=== PATIENT | female | born 1975 | race Caucasian/White ===

== ENCOUNTER 2016-09-30 14:34 | Emergency (ER) | payer OTHER ==
[2016-09-30] MEDS ORDERED: Iohexol 240 (50 ml) PO ONE (15:10)
[2016-09-30] MEDS ORDERED: Sodium Chloride 0.9% 1,000 ML IV STA (15:11)
--- NOTE | 2016-09-30 15:12 | ED PDOC ---
HPI: Abdomen Time Seen by Provider: 09/30/16 14:51 Chief Complaint (Nursing): Abdominal Pain Chief Complaint (Provider): Abdominal pain History Per: Patient Additional Complaint(s): To ED for evaluation of abdominal pain L>R and constipation x 1 week with vomiting and epigastric pain. Past Medical History Vital Signs: Last Vital Signs Temp 98.0 F 09/30/16 14:41 Pulse 105 H 09/30/16 14:41 Resp 16 09/30/16 14:41 BP 141/81 09/30/16 14:41 Pulse Ox 100 09/30/16 14:41 - Medical History PMH: Anemia, Hypothyroidism, Kidney Stones - Family History Family History: States: Unknown Family Hx - Immunization History Hx Tetanus Toxoid Vaccination: No Hx Influenza Vaccination: No Hx Pneumococcal Vaccination: No - Home Medications Home Medications: Ambulatory Orders Medication Instructions Recorded Levothyroxine Sodium [Levoxyl] 75 mcg PO DAILY 08/10/14 Ciprofloxacin HCl [Cipro] 500 mg PO BID 7 Days 05/15/15 Ibuprofen [Motrin] 600 mg PO TID 7 Days 05/15/15 Metronidazole [Flagyl] 500 mg PO TID 7 Days 05/15/15 Tamsulosin [Flomax] 0.4 mg PO DAILY PRN #6 cap 05/15/15 - Allergies Allergies/Adverse Reactions: Allergies Allergy/AdvReac Type Severity Reaction Status Date / Time aloe Allergy RASH Verified 09/30/16 14:41 sulfamethoxazole Allergy RASH Verified 12/31/15 19:43 [From Bactrim] trimethoprim [From Bactrim] Allergy RASH Verified 12/31/15 19:43 - ECG O2 Sat by Pulse Oximetry: 100
[2016-09-30 15:28] LABS: SQUAMOUS EPITHIAL 3 /hpf (0-5); URINE BACTERIA RARE (<OCC); URINE BILIRUBIN NEGATIVE (NEGATIVE); URINE BLOOD NEGATIVE (NEGATIVE); URINE CLARITY SLIGHTY-CLOUDY (Clear); URINE COLOR YELLOW (YELLOW); URINE GLUCOSE (UA) NEG (Normal); URINE LEUKOCYTE ESTERASE SMALL Leu/uL (Negative); URINE NITRATE NEGATIVE (NEGATIVE); URINE PROTEIN 30 mg/dL (NEGATIVE); URINE UROBILINOGEN 0.2-1.0 mg/dL (0.2-1.0)
[2016-09-30 15:38] LABS: BASO # 0.1 K/uL (0.0-0.2); BASO % 0.5 % (0.0-2.0); EOS % 0.3 % (0.0-4.0); HEMOGLOBIN 14.1 g/dL (12.0-16.0); LYMPH # 2.6 K/uL (1.0-4.3); LYMPH % 21.5 % (20.0-40.0); MEAN CORPUSCULAR HGB CONC 32.5 g/dL (33.0-37.0); MEAN PLATELET VOLUME 9.4 fl (7.2-11.7); MONO % 8.2 % (0.0-10.0); NEUT # 8.4 K/uL (1.8-7.0); NEUT % 69.5 % (50.0-75.0); RBC 5.43 Mil/uL (3.80-5.20); RED CELL DISTRIBUTION WIDTH 16.4 % (11.5-14.5); WHITE BLOOD COUNT 12.1 K/uL (4.8-10.8)
[2016-09-30 15:47] LABS: ALB/GLOB RATIO 1.1 (1.0-2.1); ALBUMIN 4.6 g/dL (3.5-5.0); ALT/SGPT 39 U/L (9-52); AMYLASE 78 U/L (30-110); AST/SGOT 25 U/L (14-36); BLOOD UREA NITROGEN 13 mg/dl (7-17); CALCIUM 11.6 mg/dL (8.4-10.2); GFR AFRICAN-AMERICAN > 60; GFR NON-AFRICAN AMERICAN > 60; LIPASE 66 U/L (23-300)
[2016-09-30] MEDS ORDERED: Iohexol 240 (50 ml) ONE (15:47)
[2016-09-30] MEDS ORDERED: Sodium Chloride 0.9% 100 ML ONE (17:34)
[2016-09-30] MEDS ORDERED: Iohexol 300 100 ML IJ ONE (17:34)
--- NOTE | 2016-09-30 18:29 | CT ---
PROCEDURE: CT abdomen and pelvis dated 09/30/2016 HISTORY: LLQ pain/ vomiting, r/o obstruction COMPARISON: Comparison made with prior CT scan abdomen pelvis 05/15/2015 TECHNIQUE: Contiguous axial images of the abdomen and pelvis performed of following oral and intravenous injection of approximately 95 cc Omnipaque 300 contrast material. . Coronal and Sagittal reformats generated. Radiation dose: Total exam DLP = 1011.11 mGy-cm. This CT exam was performed using one or more of the following dose reduction techniques: Automated exposure control, adjustment of the mA and/or kV according to patient size, and/or use of iterative reconstruction technique. FINDINGS: LOWER THORAX: Unremarkable. LIVER: Liver exhibits normal upper limits of normal in size measuring nearly 17 cm in CC dimension. . Subtle area of low attenuation along the left lobe liver bordering the fissure probably represent some localized fatty infiltration. Follow-up CT scan at interval could be performed to assess stability. No calcifications are identified. . Mild diffuse fatty hepatic infiltration. Portal and splenic veins are opacified. GALLBLADDER AND BILE DUCTS: Gallbladder is moderately distended. Layering calculi seen within the dependent portion of the gallbladder. PANCREAS: Visualized portions the pancreas unremarkable. SPLEEN: Spleen is upper limits of normal measuring approximately 12 cm in CC dimension. . No evidence of splenic collection or calcification. . ADRENALS: No definitive adrenal lesions seen. KIDNEYS AND URETERS: Kidneys demonstrate symmetric nephrograms. No evidence of nephrolithiasis or hydronephrosis. . Probable tiny exophytic cyst mid to lower pole right kidney BLADDER: Urinary bladder is physiologically distended. No evidence of intraluminal urinary bladder calculi. REPRODUCTIVE: Status post hysterectomy. There is a rounded low-attenuation focus right aspect of the pelvis possibly representing an ovarian cyst. This measures approximately a 2.2 cm in greatest dimension APPENDIX: Not visualized on this study. . . BOWEL: Evaluation of the bowel is limited due to the lack of oral contrast material. There are scattered colonic diverticula seen along the descending and sigmoid colon region. Minor wall thickening is also present along the distal descending/ sigmoid colon best seen on axial image number [id number] and possibly again on along the lower sigmoid colon image number [id number]. Findings could represent mild early acute diverticulitis. Few small on lymph nodes right lower quadrant of the abdomen ; rule out with mesenteric adenitis PERITONEUM: No gross free intraperitoneal air or fluid. LYMPH NODES: As above. VASCULATURE: Unremarkable. No aortic aneurysm. BONES: No fracture or destructive lesion. OTHER FINDINGS: None. IMPRESSION: Diverticulosis involving the descending and proximal sigmoid colon with slight wall thickening of a short segment of the distal descending/sigmoid colon junction. Rule out early mild acute diverticulitis. Borderline splenomegaly. Borderline hepatomegaly. Mild fatty hepatic infiltration. Questionable mesenteric adenitis. Status post hysterectomy. Probable right ovarian cyst as above. Recommend followup pelvic ultrasound for confirmation Findings discussed with THADDEUS Hawkins at approximately 6:25 p.m. with written down and read back verification
[2016-09-30 18:53] VITALS: BP 134/78; PULSE 67; RESP 19; TEMP 98.1; O2SAT 98
== END 2016-09-30 19:20 | disposition home or self-care (01) ==
LOC: H.ER 14:34
DX: K57.30 Diverticulosis of large intestine without perforation or abscess without bleeding (principal); Z90.710 Acquired absence of both cervix and uterus

== ENCOUNTER 2017-04-07 14:47 | Emergency (ER) | payer MEDICAID, OTHER ==
[2017-04-07 14:47] VITALS: BMI 35.9
[2017-04-07 15:16] VITALS: BP 140/82; PULSE 88; RESP 16; TEMP 97.9; O2SAT 99
--- NOTE | 2017-04-07 16:33 | ED PDOC ---
HPI: CCC, URI, Sore Throat Time Seen by Provider: 04/07/17 15:26 Chief Complaint (Nursing): Cough, Cold, Congestion Past Medical History Vital Signs: Last Vital Signs Temp 97.9 F 04/07/17 15:14 Pulse 88 04/07/17 15:14 Resp 16 04/07/17 15:14 BP 140/82 04/07/17 15:14 Pulse Ox 99 04/07/17 15:14 - Medical History PMH: Anemia, Hypothyroidism, Kidney Stones, Chronic Kidney Disease - Family History Family History: States: Unknown Family Hx - Immunization History Hx Tetanus Toxoid Vaccination: No Hx Influenza Vaccination: No Hx Pneumococcal Vaccination: No - Home Medications Home Medications: Ambulatory Orders Medication Instructions Recorded Levothyroxine Sodium [Levoxyl] 75 mcg PO DAILY 08/10/14 Azithromycin 250 mg PO DAILY #6 tab 04/07/17 - Allergies Allergies/Adverse Reactions: Allergies Allergy/AdvReac Type Severity Reaction Status Date / Time aloe Allergy RASH Verified 04/07/17 15:14 sulfamethoxazole Allergy RASH Verified 04/07/17 15:14 [From Bactrim] trimethoprim [From Bactrim] Allergy RASH Verified 04/07/17 15:14 - ECG O2 Sat by Pulse Oximetry: 99 Disposition - Clinical Impression Clinical Impression: Acute bronchitis - Patient ED Disposition Is Patient to be Admitted: No Counseled Patient/Family Regarding: Diagnosis, Need For Followup, Rx Given - Disposition Disposition: Routine/Home Disposition Time: 16:32 Condition: GOOD Prescriptions: Azithromycin 250 mg PO DAILY #6 tab Instructions: Acute Bronchitis (ED)
--- NOTE | 2017-04-07 16:35 | ED PDOC ---
HPI: CCC, URI, Sore Throat Time Seen by Provider: 04/07/17 15:26 Chief Complaint (Nursing): Cough, Cold, Congestion Chief Complaint (Provider): Cough, right sided chest pain with cough History Per: Patient History/Exam Limitations: no limitations Have you had recent travel within the past 21 days to any of the following countries: [place], [place], [place] or [place]?: No Onset/Duration Of Symptoms: Days Current Symptoms Are (Timing): Still Present Associated Symptoms: Fever (no temp taken), Cough. denies: Sputum, Myalgias Ear Symptoms: Bilateral: None Severity: Mild Pain Scale Rating Of: 3 Past Medical History Reviewed: Historical Data, Nursing Documentation, Vital Signs Vital Signs: Last Vital Signs Temp 97.9 F 04/07/17 15:14 Pulse 88 04/07/17 15:14 Resp 16 04/07/17 15:14 BP 140/82 04/07/17 15:14 Pulse Ox 99 04/07/17 16:33 - Medical History PMH: Anemia, Hypothyroidism, Kidney Stones, Chronic Kidney Disease - Surgical History Surgical History: No Surg Hx - Family History Family History: States: Unknown Family Hx - Living Arrangements Living Arrangements: With Family - Social History Current smoker - smoking cessation education provided: No - Immunization History Hx Tetanus Toxoid Vaccination: No Hx Influenza Vaccination: No Hx Pneumococcal Vaccination: No - Home Medications Home Medications: Ambulatory Orders Medication Instructions Recorded Levothyroxine Sodium [Levoxyl] 75 mcg PO DAILY 08/10/14 Azithromycin 250 mg PO DAILY #6 tab 04/07/17 - Allergies Allergies/Adverse Reactions: Allergies Allergy/AdvReac Type Severity Reaction Status Date / Time aloe Allergy RASH Verified 04/07/17 15:14 sulfamethoxazole Allergy RASH Verified 04/07/17 15:14 [From Bactrim] trimethoprim [From Bactrim] Allergy RASH Verified 04/07/17 15:14 Review of Systems ROS Statement: Except As Marked, All Systems Reviewed And Found Negative Constitutional: Negative for: Fever, Chills Cardiovascular: Positive for: Chest Pain (Only when coughing ) Respiratory: Positive for: Cough. Negative for: Shortness of Breath Gastrointestinal: Negative for: Nausea, Vomiting, Abdominal Pain Physical Exam - Reviewed Nursing Documentation Reviewed: Yes Vital Signs Reviewed: Yes - Physical Exam Appears: Positive for: Well, Non-toxic, No Acute Distress Head Exam: Positive for: ATRAUMATIC, NORMAL INSPECTION, NORMOCEPHALIC Skin: Positive for: Normal Color, Warm, DRY Eye Exam: Positive for: Normal appearance ENT: Positive for: Normal ENT Inspection Neck: Positive for: Normal, Painless ROM Cardiovascular/Chest: Positive for: Regular Rate, Rhythm Respiratory: Positive for: Normal Breath Sounds. Negative for: Accessory Muscle Use, Respiratory Distress Gastrointestinal/Abdominal: Positive for: Normal Exam, Bowel Sounds Back: Positive for: Normal Inspection Extremity: Positive for: Normal ROM Neurologic/Psych: Positive for: Alert, Oriented - ECG O2 Sat by Pulse Oximetry: 99 Disposition - Clinical Impression Clinical Impression: Acute bronchitis - Disposition Disposition: Routine/Home Disposition Time: 16:32 Condition: GOOD Prescriptions: Azithromycin 250 mg PO DAILY #6 tab Instructions: Acute Bronchitis (ED) Forms: [facility] ([place])
--- NOTE | 2017-04-07 16:50 | RAD ---
HISTORY: right sided chest pain with cough COMPARISON: 04/03/2012 TECHNIQUE: Chest PA and lateral FINDINGS: LUNGS: No active pulmonary disease. PLEURA: No significant pleural effusion identified. No pneumothorax apparent. CARDIOVASCULAR: Normal. OSSEOUS STRUCTURES: No significant abnormalities. VISUALIZED UPPER ABDOMEN: Normal. OTHER FINDINGS: None. IMPRESSION: No active disease.
--- NOTE | 2017-04-08 14:27 | CARD ---
APPROVED REPORT EKG Measurement Heart [id number] <Conclusion> Normal sinus rhythm Normal ECG
== END 2017-04-07 16:41 | disposition home or self-care (01) ==
LOC: H.ER 14:47
DX: J20.9 Acute bronchitis, unspecified (principal); E03.9 Hypothyroidism, unspecified; Z87.442 Personal history of urinary calculi

== ENCOUNTER 2017-04-17 01:42 | Emergency (ER) | payer MEDICAID ==
[2017-04-17 01:42] VITALS: BMI 35.9
[2017-04-17 02:20] VITALS: BP 131/83; PULSE 84; RESP 18; TEMP 98.1; O2SAT 100
[2017-04-17] MEDS ORDERED: Sodium Chloride 0.9% 1,000 ML IV STA (02:41)
--- NOTE | 2017-04-17 02:48 | ED PDOC ---
HPI: Chest Pain Time Seen by Provider: 04/17/17 02:01 Chief Complaint (Nursing): Chest Pain Chief Complaint (Provider): Chest Pain History Per: Patient History/Exam Limitations: no limitations Onset/Duration Of Symptoms: Days (x1 month) Current Symptoms Are (Timing): Still Present Additional Complaint(s): 41 year old female with medical history of hypothyroidism, asthma and chronic kidney disease, presents to the emergency department with a complaint of intermittent chest pain associated with palpitations, abdominal cramping and 7 episodes of loose, watery diarrhea ongoing for 1 month. Denied any fever, chills , nausea, vomiting or cough. She also reported having shortness of breath that had resolved upon arrival to ED. PMD: Shaik Kathrine BADILLO Past Medical History Reviewed: Historical Data, Nursing Documentation, Vital Signs Vital Signs: Last Vital Signs Temp 98.1 F 04/17/17 02:16 Pulse 84 04/17/17 02:16 Resp 18 04/17/17 02:16 BP 131/83 04/17/17 02:16 Pulse Ox 100 04/17/17 02:52 - Medical History PMH: Anemia, Hypothyroidism, Kidney Stones, Chronic Kidney Disease - Surgical History Surgical History: Denies: No Surg Hx - Family History Family History: States: Unknown Family Hx - Social History Current smoker - smoking cessation education provided: No Alcohol: Occasional Drugs: Denies - Immunization History Hx Tetanus Toxoid Vaccination: No Hx Influenza Vaccination: No Hx Pneumococcal Vaccination: No - Home Medications Home Medications: Ambulatory Orders Medication Instructions Recorded Levothyroxine Sodium [Levoxyl] 75 mcg PO DAILY 08/10/14 Azithromycin 250 mg PO DAILY #6 tab 04/07/17 Dicyclomine [Bentyl] 20 mg PO Q12 PRN #20 tab 04/17/17 Ondansetron ODT [Zofran ODT] 4 mg PO Q6 PRN #8 odt 04/17/17 - Allergies Allergies/Adverse Reactions: Allergies Allergy/AdvReac Type Severity Reaction Status Date / Time aloe Allergy RASH Verified 04/17/17 02:20 sulfamethoxazole Allergy RASH Verified 04/17/17 02:20 [From Bactrim] trimethoprim [From Bactrim] Allergy RASH Verified 04/17/17 02:20 Review of Systems ROS Statement: Except As Marked, All Systems Reviewed And Found Negative Constitutional: Negative for: Fever, Chills Cardiovascular: Positive for: Chest Pain, Palpitations Respiratory: Positive for: Shortness of Breath (resolved). Negative for: Cough Gastrointestinal: Positive for: Abdominal Pain (cramps), Diarrhea (loose and wateryx 7). Negative for: Nausea, Vomiting Physical Exam - Reviewed Nursing Documentation Reviewed: Yes Vital Signs Reviewed: Yes - Physical Exam Appears: Positive for: Well, Non-toxic, No Acute Distress Head Exam: Positive for: ATRAUMATIC, NORMAL INSPECTION, NORMOCEPHALIC Skin: Positive for: Normal Color Eye Exam: Positive for: Normal appearance ENT: Positive for: Normal ENT Inspection Neck: Positive for: Normal, Painless ROM Cardiovascular/Chest: Positive for: Regular Rate, Rhythm, Chest Non Tender Respiratory: Positive for: Normal Breath Sounds. Negative for: Decreased Breath Sounds, Respiratory Distress Gastrointestinal/Abdominal: Positive for: Normal Exam, Soft. Negative for: Tenderness Extremity: Positive for: Normal ROM (lower). Negative for: Pedal Edema, Calf Tenderness Neurologic/Psych: Positive for: Alert (x3), Oriented - Laboratory Results Result Diagrams: 04/17/17 02:45 04/17/17 02:45 - ECG O2 Sat by Pulse Oximetry: 100 (RA) Pulse Ox Interpretation: Normal Medical Decision Making Medical Decision Making: Initial Impression: Palpitations in setting of diarrheal illness Initial Plan: * EKG * CMP * Drug screen, urine * Lipase * TSH * Troponin I * CBC * Bentyl 20mg PO * NS 1,000ml IV per 1,000mls/hr * Influenza A B * UA ____ Time: 0505 --Upon provider reevaluation, patient is medically stable and requires no further treatment in the ED at this time. Labs revealed no significant clinical abnormality. Patient will be discharged home with Rx for Bentyl 20mg and Zofran 4mg. Counseling was provided and all questions were answered regarding diagnosis. There is agreement to discharge plan. Return if symptoms persist or worsen. Clinical Impression: Gastroenteritis; palpitations Scribe Attestation: Documented by Rose Barron, acting as a scribe for Javier Pierson MD. Provider Scribe Attestation: All medical record entries made by the Scribe were at my direction and personally dictated by me. I have reviewed the chart and agree that the record accurately reflects my personal performance of the history, physical exam, medical decision making, and the department course for this patient. I have also personally directed, reviewed, and agree with the discharge instructions and disposition. Disposition - Clinical Impression Clinical Impression: Gastroenteritis - Patient ED Disposition Is Patient to be Admitted: No Counseled Patient/Family Regarding: Studies Performed, Diagnosis - Disposition Disposition: Routine/Home Disposition Time: 05:05 Condition: STABLE Prescriptions: Dicyclomine [Bentyl] 20 mg PO Q12 PRN #20 tab PRN Reason: abdominal pain/diarrhea Ondansetron ODT [Zofran ODT] 4 mg PO Q6 PRN #8 odt PRN Reason: Nausea/Vomiting Instructions: Gastroenteritis (ED) Forms: [employer] ([place])
[2017-04-17 03:22] LABS: BASO % 0.3 % (0.0-2.0); EOS # 0.1 K/uL (0.0-0.7); EOS % 0.8 % (0.0-4.0); HEMOGLOBIN 13.7 g/dL (12.0-16.0); LYMPH # 2.4 K/uL (1.0-4.3); LYMPH % 27.1 % (20.0-40.0); MEAN CELL VOLUME 82.4 fl (81.0-99.0); MEAN CORPUSCULAR HEMOGLOBIN 27.1 pg (27.0-31.0); MEAN CORPUSCULAR HGB CONC 32.9 g/dL (33.0-37.0); MEAN PLATELET VOLUME 9.1 fl (7.2-11.7); MONO # 0.7 K/uL (0.0-0.8); MONO % 8.4 % (0.0-10.0); NEUT # 5.6 K/uL (1.8-7.0); NEUT % 63.4 % (50.0-75.0); NRBC % 0.1 % (0.0-0.0); RBC 5.05 Mil/uL (3.80-5.20); RED CELL DISTRIBUTION WIDTH 15.3 % (11.5-14.5); WHITE BLOOD COUNT 8.9 K/uL (4.8-10.8)
[2017-04-17 03:33] LABS: ALB/GLOB RATIO 1.2 (1.0-2.1); ALBUMIN 4.3 g/dL (3.5-5.0); ALT/SGPT 44 U/L (9-52); AST/SGOT 35 U/L (14-36); BLOOD UREA NITROGEN 15 mg/dl (7-17); CALCIUM 11.2 mg/dL (8.4-10.2); GFR AFRICAN-AMERICAN > 60; GFR NON-AFRICAN AMERICAN > 60; LIPASE 102 U/L (23-300)
[2017-04-17 05:01] LABS: SQUAMOUS EPITHIAL < 1 /hpf (0-5); URINE BACTERIA RARE (<OCC); URINE BILIRUBIN NEGATIVE (NEGATIVE); URINE BLOOD NEGATIVE (NEGATIVE); URINE CLARITY CLEAR (Clear); URINE COLOR COLORLESS (YELLOW); URINE GLUCOSE (UA) NEG (Normal); URINE LEUKOCYTE ESTERASE NEG Leu/uL (Negative); URINE NITRATE NEGATIVE (NEGATIVE); URINE PROTEIN NEGATIVE (NEGATIVE); URINE UROBILINOGEN 0.2-1.0 mg/dL (0.2-1.0)
[2017-04-17 05:50] LABS: BARBITURATES, UR NEGATIVE (NEGATIVE)
[2017-04-17 05:53] LABS: BENZODIAZEPINES, UR NEGATIVE (NEGATIVE); OPIATES, UR NEGATIVE (NEGATIVE); PHENCYCLIDINE, UR NEGATIVE (NEGATIVE)
== END 2017-04-17 04:56 | disposition home or self-care (01) ==
LOC: H.ER 01:42
DX: K52.9 Noninfective gastroenteritis and colitis, unspecified (principal); R00.2 Palpitations; J45.909 Unspecified asthma, uncomplicated; Z87.442 Personal history of urinary calculi; N18.9 Chronic kidney disease, unspecified; E03.9 Hypothyroidism, unspecified
CPT/HCPCS: 80053; 80324; 80345; 80346; 80349; 80353; 80358; 80361; 81003; 83690; 83992; 84443; 84484; 85025; 87804; 96360; 99284; J7040

== ENCOUNTER 2017-07-02 08:28 | Emergency (ER) | payer MEDICAID ==
[2017-07-02 08:34] VITALS: BMI 37.8
--- NOTE | 2017-07-02 09:21 | ED PDOC ---
HPI: Abdomen Time Seen by Provider: 07/02/17 09:15 Chief Complaint (Nursing): Abdominal Pain Chief Complaint (Provider): Abdominal Pain History Per: Patient Onset/Duration Of Symptoms: Days (1) Current Symptoms Are (Timing): Still Present Severity: Mild Pain Scale Rating Of: 2 Location Of Pain/Discomfort: LLQ Quality Of Discomfort: Unable To Describe Associated Symptoms: denies: Fever, Nausea, Vomiting, Diarrhea, Urinary Symptoms Additional Complaint(s): Left flank pain radiating to suprapubic area since this AM. No assoc with NVD. No urinary sxs. No fever. Past Medical History Reviewed: Historical Data, Nursing Documentation, Vital Signs Vital Signs: Last Vital Signs Temp 97 F L 07/02/17 08:33 Pulse 68 07/02/17 08:33 Resp BP 133/86 07/02/17 08:33 Pulse Ox 97 07/02/17 11:19 - Medical History PMH: Anemia, Asthma, Bronchitis, Hypothyroidism, Kidney Stones, Chronic Kidney Disease - Surgical History Other surgeries: Hysterectomy - Family History Family History: States: Unknown Family Hx - Immunization History Hx Tetanus Toxoid Vaccination: No Hx Influenza Vaccination: No Hx Pneumococcal Vaccination: No - Home Medications Home Medications: Ambulatory Orders Medication Instructions Recorded Levothyroxine Sodium [Levoxyl] 75 mcg PO DAILY 08/10/14 Ciprofloxacin HCl [Cipro] 500 mg PO BID #20 tab 07/02/17 Tamsulosin [Flomax] 0.4 mg PO DAILY #5 cap 07/02/17 traMADol [Ultram] 50 mg PO Q8 #10 tab 07/02/17 - Allergies Allergies/Adverse Reactions: Allergies Allergy/AdvReac Type Severity Reaction Status Date / Time aloe Allergy RASH Verified 04/17/17 02:20 sulfamethoxazole Allergy RASH Verified 04/17/17 02:20 [From Bactrim] trimethoprim [From Bactrim] Allergy RASH Verified 04/17/17 02:20 Review of Systems ROS Statement: Except As Marked, All Systems Reviewed And Found Negative Gastrointestinal: Positive for: Abdominal Pain Physical Exam - Reviewed Nursing Documentation Reviewed: Yes Vital Signs Reviewed: Yes - Physical Exam Appears: Positive for: Non-toxic, No Acute Distress Head Exam: Positive for: ATRAUMATIC, NORMAL INSPECTION, NORMOCEPHALIC Skin: Positive for: Normal Color, Warm, DRY Eye Exam: Positive for: EOMI, Normal appearance, PERRL ENT: Positive for: Normal ENT Inspection Neck: Positive for: Normal, Painless ROM Cardiovascular/Chest: Positive for: Regular Rate, Rhythm Respiratory: Positive for: CNT, Normal Breath Sounds Gastrointestinal/Abdominal: Positive for: Normal Exam, Soft. Negative for: Tenderness Back: Positive for: Normal Inspection. Negative for: L CVA Tenderness, R CVA Tenderness Extremity: Positive for: Normal ROM Neurologic/Psych: Positive for: Alert, Oriented - Laboratory Results Result Diagrams: 07/02/17 10:15 07/02/17 10:15 - ECG O2 Sat by Pulse Oximetry: 97 (RA) Pulse Ox Interpretation: Normal Medical Decision Making Medical Decision Making: Time: 918 Plan: -- CT Abd/Pelvis w/o contrast -- CMP -- ED Urine -- ED Urine Dipstick -- CBC with differentials -- Urine Culture Scribe Attestation: Documented by Yamilet Otto, acting as a scribe for Dr. Jerel Denise. Provider Scribe Attestation: All medical record entries made by the Scribe were at my direction and personally dictated by me. I have reviewed the chart and agree that the record accurately reflects my personal performance of the history, physical exam, medical decision making, and the department course for this patient. I have also personally directed, reviewed, and agree with the discharge instructions and disposition. Disposition - Clinical Impression Clinical Impression: Urolithiasis - Patient ED Disposition Is Patient to be Admitted: No - Disposition Referrals: Taye Mendoza MD [Staff Provider] - Disposition: Routine/Home Disposition Time: 11:26 Condition: FAIR Prescriptions: Ciprofloxacin HCl [Cipro] 500 mg PO BID #20 tab Tamsulosin [Flomax] 0.4 mg PO DAILY #5 cap traMADol [Ultram] 50 mg PO Q8 #10 tab Instructions: Kidney Stones in Adults Forms: [employer] (Polish)
[2017-07-02 10:31] LABS: BASO % 0.4 % (0.0-2.0); EOS % 0.3 % (0.0-4.0); LYMPH # 2.5 K/uL (1.0-4.3); LYMPH % 28.4 % (20.0-40.0); MEAN CELL VOLUME 83.5 fl (81.0-99.0); MEAN CORPUSCULAR HEMOGLOBIN 27.3 pg (27.0-31.0); MEAN CORPUSCULAR HGB CONC 32.7 g/dL (33.0-37.0); MONO # 0.6 K/uL (0.0-0.8); MONO % 6.8 % (0.0-10.0); NEUT # 5.7 K/uL (1.8-7.0); NEUT % 64.1 % (50.0-75.0); NRBC % 0.1 % (0.0-0.0); RBC 5.13 Mil/uL (3.80-5.20)
[2017-07-02 10:46] LABS: BLOOD UREA NITROGEN 11 mg/dl (7-17); GFR AFRICAN-AMERICAN > 60; GFR NON-AFRICAN AMERICAN > 60
[2017-07-02 10:47] LABS: ALB/GLOB RATIO 1.1 (1.0-2.1); ALBUMIN 3.9 g/dL (3.5-5.0); ALT/SGPT 43 U/L (9-52); AST/SGOT 25 U/L (14-36); CALCIUM 9.9 mg/dL (8.4-10.2)
--- NOTE | 2017-07-02 11:22 | CT ---
PROCEDURE: CT Abdomen and Pelvis without intravenous contrast HISTORY: r/o kidney stone COMPARISON: None. TECHNIQUE: Without contrast.. Contrast Dose: 0 0 Radiation dose: Total exam DLP = Total exam DLP = 886.12 mGy-cm. This CT exam was performed using one or more of the following dose reduction techniques: Automated exposure control, adjustment of the mA and/or kV according to patient size, and/or use of iterative reconstruction technique. FINDINGS: LOWER THORAX: No infiltrate/ effusion. Very small hiatal hernia. LIVER: Normal size, contour. Diffusely diminished attenuation consistent with fatty infiltration. No mass. No biliary ductal dilatation. GALLBLADDER AND BILE DUCTS: Cholelithiasis. No mural thickening. No pericholecystic fluid. PANCREAS: Unremarkable. No gross lesion or ductal dilatation. SPLEEN: Unremarkable. ADRENALS: Unremarkable. No mass. KIDNEYS AND URETERS: 2 mm nonobstructing left lower pole renal calculus. Mild left hydroureteronephrosis with distal left ureteral 4 mm calculus just proximal to the UVJ. No right hydronephrosis or hydroureter. No renal mass. No perinephric fluid. VASCULATURE: Unremarkable. No aortic aneurysm. BOWEL: No bowel obstruction. Scattered colonic diverticular. APPENDIX: Not identified. No secondary findings. PERITONEUM: Unremarkable. No free fluid. No free air. LYMPH NODES: 2 mm nonobstructing left lower pole renal calculus. Fatty infiltration of the liver. Cholelithiasis. Very small hiatal hernia. No retroperitoneal or pelvic lymphadenopathy. Numerous shotty subcentimeter nodes in the small bowel mesenteric and in the right lower quadrant medial to the cecum and ascending colon. Nonspecific and unchanged from prior examination. BLADDER: Unremarkable. REPRODUCTIVE: Status post hysterectomy. BONES: No acute fracture. OTHER FINDINGS: None. IMPRESSION: 4 mm obstructing distal left ureteral calculus with mild left hydroureteronephrosis. 2 mm nonobstructing left lower pole renal calculus. Fatty infiltration of the liver. Very small hiatal hernia.
[2017-07-02 11:42] VITALS: BP 135/80; PULSE 72; RESP 14; TEMP 98.1; O2SAT 100
== END 2017-07-02 11:43 | disposition home or self-care (01) ==
LOC: H.ER 08:28
DX: N20.9 Urinary calculus, unspecified (principal); E03.9 Hypothyroidism, unspecified; Z87.442 Personal history of urinary calculi; J45.909 Unspecified asthma, uncomplicated
CPT/HCPCS: 74176; 80053; 81025; 85025; 87086; 96374; 99284; J1885

== ENCOUNTER 2017-11-19 15:03 | Emergency (ER) | payer MEDICAID ==
[2017-11-19 15:03] VITALS: BMI 37.8
--- NOTE | 2017-11-19 15:43 | ED PDOC ---
HPI: Abdomen Time Seen by Provider: 11/19/17 15:14 Chief Complaint (Nursing): Abdominal Pain Chief Complaint (Provider): Abd pain History Per: Patient History/Exam Limitations: no limitations Onset/Duration Of Symptoms: Days (today) Additional Complaint(s): Pt. with abd pain diffuse for 1 week. Worse with food and nausea with it. No diarrhea. No weakness, headaches, dizziness, chest pain, dyspnea. No dysuria. No fever. No cough. Left flank pain off and on. No new food or drinks. Past Medical History Reviewed: Nursing Documentation, Vital Signs Vital Signs: Last Vital Signs Temp 98.5 F 11/19/17 15:07 Pulse 85 11/19/17 15:07 Resp 19 11/19/17 15:07 BP 140/87 11/19/17 15:07 Pulse Ox 98 11/19/17 19:41 - Medical History PMH: Anemia, Asthma, Bronchitis, Hypothyroidism, Kidney Stones - Surgical History Other surgeries: hysterectomy - Family History Family History: States: Unknown Family Hx - Social History Alcohol: None Drugs: Denies - Immunization History Hx Tetanus Toxoid Vaccination: No Hx Influenza Vaccination: No Hx Pneumococcal Vaccination: No - Home Medications Home Medications: Ambulatory Orders Medication Instructions Recorded Levothyroxine Sodium [Levoxyl] 75 mcg PO DAILY 08/10/14 Ciprofloxacin HCl [Cipro] 500 mg PO BID #20 tab 07/02/17 Tamsulosin [Flomax] 0.4 mg PO DAILY #5 cap 07/02/17 traMADol [Ultram] 50 mg PO Q8 #10 tab 07/02/17 - Allergies Allergies/Adverse Reactions: Allergies Allergy/AdvReac Type Severity Reaction Status Date / Time aloe Allergy RASH Verified 04/17/17 02:20 sulfamethoxazole Allergy RASH Verified 04/17/17 02:20 [From Bactrim] trimethoprim [From Bactrim] Allergy RASH Verified 04/17/17 02:20 Review of Systems ROS Statement: Except As Marked, All Systems Reviewed And Found Negative Gastrointestinal: Positive for: Nausea, Abdominal Pain Musculoskeletal: Positive for: Back Pain (flank pain left) Physical Exam - Reviewed Nursing Documentation Reviewed: Yes Vital Signs Reviewed: Yes - Physical Exam Appears: Positive for: Non-toxic, No Acute Distress Head Exam: Positive for: ATRAUMATIC, NORMAL INSPECTION, NORMOCEPHALIC Skin: Positive for: Normal Color, Warm, DRY Eye Exam: Positive for: EOMI, Normal appearance, PERRL ENT: Positive for: Normal ENT Inspection Neck: Positive for: Normal, Painless ROM, Supple Cardiovascular/Chest: Positive for: Regular Rate, Rhythm Respiratory: Positive for: CNT, Normal Breath Sounds Gastrointestinal/Abdominal: Positive for: Soft, Tenderness (periumbilical, epigastric, rlq). Negative for: Distended, Guarding Back: Positive for: L CVA Tenderness. Negative for: R CVA Tenderness Extremity: Positive for: Normal ROM. Negative for: Tenderness Neurologic/Psych: Positive for: Alert, Oriented - Laboratory Results Result Diagrams: 11/19/17 16:45 11/19/17 16:45 Interpretation Of Abn Labs: 12.1 wbc Interpretation Of Abnormal: alt/alt mild elevation - ECG O2 Sat by Pulse Oximetry: 98 Pulse Ox Interpretation: Normal - CT Scan/US ct Other Rad Studies (CT/US): Read By Radiologist Other Rad Interpretation: no acute - Progress ED Course And Treament: 1939: Stable. Tolerated po. AAOx3. Pain free. FU with pcp. Disposition - Clinical Impression Clinical Impression: Abdominal pain, Elevated liver enzymes - Patient ED Disposition Is Patient to be Admitted: No Counseled Patient/Family Regarding: Studies Performed, Diagnosis, Need For Followup - Disposition Referrals: Lon Chinchilla MD [Staff Provider] - 11/22/17 [facility] [Outside] - 11/23/17 Disposition: Routine/Home Disposition Time: 19:43 Condition: STABLE Additional Instructions: You have elevated liver enzymes. Make sure to follow up with the specialist in 3 days. Return if not better in 3 days. Instructions: Stomach Ache and Stomach Upset Forms: [employer] [facility] (Danish)
[2017-11-19] MEDS ORDERED: Iohexol 240 (50 ml) ONE (15:49)
[2017-11-19] MEDS: Iohexol 240 (50 ml) PO ONE (16:06)
[2017-11-19 17:11] LABS: BASO % 0.3 % (0.0-2.0); EOS % 0.4 % (0.0-4.0); HEMOGLOBIN 14.9 g/dL (12.0-16.0); LYMPH # 3.3 K/uL (1.0-4.3); LYMPH % 27.5 % (20.0-40.0); MEAN CELL VOLUME 85.5 fl (81.0-99.0); MEAN CORPUSCULAR HEMOGLOBIN 28.4 pg (27.0-31.0); MEAN CORPUSCULAR HGB CONC 33.3 g/dL (33.0-37.0); MEAN PLATELET VOLUME 9.3 fl (7.2-11.7); MONO % 8.2 % (0.0-10.0); NEUT # 7.7 K/uL (1.8-7.0); NEUT % 63.6 % (50.0-75.0); NRBC % 0.1 % (0.0-0.0); RBC 5.23 Mil/uL (3.80-5.20); WHITE BLOOD COUNT 12.1 K/uL (4.8-10.8)
[2017-11-19 17:26] LABS: ALB/GLOB RATIO 1.2 (1.0-2.1); ALBUMIN 4.3 g/dL (3.5-5.0); ALT/SGPT 63 U/L (9-52); AST/SGOT 57 U/L (14-36); BLOOD UREA NITROGEN 10 mg/dl (7-17); GFR NON-AFRICAN AMERICAN > 60; LIPASE 71 U/L (23-300)
[2017-11-19] MEDS ORDERED: Iohexol 300 100 ML IJ ONE (17:35)
[2017-11-19] MEDS ORDERED: Sodium Chloride 0.9% 50 ML IV ONE (17:35)
--- NOTE | 2017-11-19 18:28 | CT ---
Date of service: 11/19/2017 PROCEDURE: CT Abdomen and Pelvis with contrast HISTORY: abd pain COMPARISON: CT scan of the abdomen pelvis dated 07/02/2017 TECHNIQUE: Contrast dose: 95 mL Omnipaque 300 Radiation dose: Total exam DLP = 787.1 mGy-cm. This CT exam was performed using one or more of the following dose reduction techniques: Automated exposure control, adjustment of the mA and/or kV according to patient size, and/or use of iterative reconstruction technique. FINDINGS: LOWER THORAX: Unremarkable. LIVER: Diffuse hepatic steatosis. No gross lesion or ductal dilatation. GALLBLADDER AND BILE DUCTS: Minimal cholelithiasis without gallbladder wall thickening/ edema or pericholecystic fluid. PANCREAS: Unremarkable. No gross lesion or ductal dilatation. SPLEEN: Unremarkable. ADRENALS: Unremarkable. No mass. KIDNEYS AND URETERS: Unremarkable. No hydronephrosis. No solid mass. VASCULATURE: Unremarkable. No aortic aneurysm. BOWEL: Mild colonic diverticulosis. No obstruction. No gross mural thickening. APPENDIX: Normal appendix. PERITONEUM: Unremarkable. No free fluid. No free air. LYMPH NODES: Unremarkable. No enlarged lymph nodes. BLADDER: Unremarkable. REPRODUCTIVE: Prior hysterectomy. Prominent right ovary. BONES: No acute fracture. OTHER FINDINGS: None. IMPRESSION: No acute abdominal pelvic pathology. Diffuse hepatic steatosis. Prominent right ovary.
[2017-11-19 19:49] VITALS: BP 146/91; PULSE 61; RESP 18; TEMP 98.2; O2SAT 100
== END 2017-11-19 20:00 | disposition home or self-care (01) ==
LOC: H.ER 15:03
DX: R10.9 Unspecified abdominal pain (principal); R94.5 Abnormal results of liver function studies; E03.9 Hypothyroidism, unspecified; K76.0 Fatty (change of) liver, not elsewhere classified
CPT/HCPCS: 74177; 80053; 83690; 85025; 96374; 96375; 99284; J1885; J2405; Q9966; Q9967

== ENCOUNTER 2018-03-19 10:18 | Emergency (ER) | payer MEDICAID ==
[2018-03-19 10:43] VITALS: PULSE 79; RESP 16; TEMP 98.5
[2018-03-19 10:45] VITALS: BMI 38.2
[2018-03-19 10:53] VITALS: O2SAT 98
--- NOTE | 2018-03-19 11:05 | ED PDOC ---
HPI: Headache Time Seen by Provider: 03/19/18 10:49 Chief Complaint (Nursing): Headache Chief Complaint (Provider): Headache History Per: Patient Additional Complaint(s): 42 yo female, PMH of Anemia, Hypothyroid, Asthma, presents to ED for evaluation of right sided facial pain and pressure, along with headache x 1 week. denies any trauma or injury. Pt taking Tylenol without relief. No fever or chills, no congestion and coughing Past Medical History Reviewed: Nursing Documentation, Vital Signs Vital Signs: Last Vital Signs Temp 98.5 F 03/19/18 10:42 Pulse 79 03/19/18 10:42 Resp 16 03/19/18 10:42 BP 150/86 03/19/18 10:42 Pulse Ox 98 03/19/18 10:51 - Medical History PMH: Anemia, Asthma, Bronchitis, Hypothyroidism, Kidney Stones, Chronic Kidney Disease - Surgical History Other surgeries: hysterectomy - Family History Family History: States: Unknown Family Hx - Living Arrangements Living Arrangements: With Family - Social History Current smoker - smoking cessation education provided: No Alcohol: None Drugs: Denies - Immunization History Hx Tetanus Toxoid Vaccination: No Hx Influenza Vaccination: No Hx Pneumococcal Vaccination: No - Home Medications Home Medications: Ambulatory Orders Medication Instructions Recorded Levothyroxine Sodium [Levoxyl] 75 mcg PO DAILY 08/10/14 Ciprofloxacin HCl [Cipro] 500 mg PO BID #20 tab 07/02/17 Tamsulosin [Flomax] 0.4 mg PO DAILY #5 cap 07/02/17 traMADol [Ultram] 50 mg PO Q8 #10 tab 07/02/17 Amoxicillin/Clavulanate [Augmentin 1 tab PO BID #14 tab 03/19/18 875 MG-125 MG] Methylprednisolone [Medrol Dose 4 mg PO DAILY #21 mg 03/19/18 Pack (21 tabs)] - Allergies Allergies/Adverse Reactions: Allergies Allergy/AdvReac Type Severity Reaction Status Date / Time aloe Allergy RASH Verified 03/19/18 10:51 sulfamethoxazole Allergy RASH Verified 03/19/18 10:51 [From Bactrim] trimethoprim [From Bactrim] Allergy RASH Verified 03/19/18 10:51 Review of Systems ROS Statement: Except As Marked, All Systems Reviewed And Found Negative Neurological: Positive for: Headache Physical Exam - Reviewed Nursing Documentation Reviewed: Yes Vital Signs Reviewed: Yes - Physical Exam Appears: Positive for: Well, Non-toxic, No Acute Distress Head Exam: Positive for: ATRAUMATIC, NORMAL INSPECTION, NORMOCEPHALIC Skin: Positive for: Normal Color, Warm, DRY Eye Exam: Positive for: Normal appearance, EOMI, PERRL ENT: Positive for: TM Is/Are (WNL), Sinus Pain/Drainage ((+) maxiallary sinus tenderness on R). Negative for: Pharyngeal Erythema, Tonsillar Exudate, Tonsillar Swelling Neck: Positive for: Normal, Painless ROM Cardiovascular/Chest: Positive for: Regular Rate, Rhythm Respiratory: Positive for: CNT, Normal Breath Sounds Gastrointestinal/Abdominal: Positive for: Normal Exam, Soft Back: Positive for: Normal Inspection Extremity: Positive for: Normal ROM Neurologic/Psych: Positive for: Alert, Oriented - ECG O2 Sat by Pulse Oximetry: 98 Medical Decision Making Medical Decision Making: CT scan ordered. Pt medicated with decadon Im CT IMPRESSION: No acute intracranial hemorrhage. Mucoperiosteal inflammatory changes both maxillary antra right greater than left. RX with Medrol Dose Pack and Augmentin Disposition - Clinical Impression Clinical Impression: Sinusitis - Patient ED Disposition Is Patient to be Admitted: No - Disposition Disposition: Routine/Home Disposition Time: 13:33 Condition: STABLE Prescriptions: Amoxicillin/Clavulanate [Augmentin 875 MG-125 MG] 1 tab PO BID #14 tab Methylprednisolone [Medrol Dose Pack (21 tabs)] 4 mg PO DAILY #21 mg Instructions: Sinusitis, Adult (DC) Forms: [employer] (Tajik)
--- NOTE | 2018-03-19 13:11 | CT ---
Date of service: 03/19/2018 PROCEDURE: CT HEAD WITHOUT CONTRAST. HISTORY: right sided headache and pressure COMPARISON: None available. TECHNIQUE: Axial computed tomography images were obtained through the head/brain without intravenous contrast. Radiation dose: Total exam DLP = 775.59 mGy-cm. This CT exam was performed using one or more of the following dose reduction techniques: Automated exposure control, adjustment of the mA and/or kV according to patient size, and/or use of iterative reconstruction technique. FINDINGS: HEMORRHAGE: No intracranial hemorrhage. BRAIN: No mass effect or edema. No atrophy or chronic microvascular ischemic changes. VENTRICLES: No obstructive hydrocephalus. CALVARIUM: Unremarkable. PARANASAL SINUSES: Mucoperiosteal inflammatory changes are present within right maxillary antrum. Incompletely visualized of apparent mucous retention cyst formation left maxillary antrum. Minor mucosal thickening seen in the right chamber sphenoid sinus. MASTOID AIR CELLS: Unremarkable as visualized. No inflammatory changes. OTHER FINDINGS: None. IMPRESSION: No acute intracranial hemorrhage. Mucoperiosteal inflammatory changes both maxillary antra right greater than left.
[2018-03-19 13:34] VITALS: BP 142/84
== END 2018-03-19 13:13 | disposition home or self-care (01) ==
LOC: H.ER 10:18
DX: J32.9 Chronic sinusitis, unspecified (principal); D64.9 Anemia, unspecified
CPT/HCPCS: 70450; 96372; 99285; J1100

== ENCOUNTER 2018-04-01 08:10 | Emergency (ER) | payer MEDICAID ==
[2018-04-01 08:11] VITALS: BMI 38.2
[2018-04-01 08:19] VITALS: PULSE 73; RESP 16; TEMP 98.6; O2SAT 99
--- NOTE | 2018-04-01 09:15 | ED PDOC ---
HPI: Influenza Time Seen by Provider: 04/01/18 08:34 Chief Complaint: Cough, Cold, Congestion Chief Complaint (Provider): Flu-like Symptoms History Per: Patient Exam Limitations: no limitations Onset/Duration Of Symptoms: Days (x2) Additional complaint(s):: 42 year old female presents to the ED for evaluation of a cough, congestion, fever t-max 102 yesterday, chills, and body aches for the past two days. Denies nausea and vomiting. Of note, patient's is being seen in this ED as well for similar symptoms. PMD: Kathrine Past Medical History Reviewed: Historical Data, Nursing Documentation, Vital Signs Vital Signs: Last Vital Signs Temp 98.6 F 04/01/18 08:18 Pulse 73 04/01/18 08:18 Resp 16 04/01/18 08:18 BP 164/71 H 04/01/18 08:18 Pulse Ox 99 04/01/18 08:18 - Medical History PMH: Anemia, Asthma, Bronchitis, Hypothyroidism, Kidney Stones, Chronic Kidney Disease - Surgical History Other surgeries: hysterectomy; D&C; Hx Bladder sling - Family History Family History: States: Unknown Family Hx - Social History Ex-Smoker (has not smoked in the last 12 months): Yes Alcohol: Social Drugs: Denies - Immunization History Hx Tetanus Toxoid Vaccination: No Hx Influenza Vaccination: Yes Hx Pneumococcal Vaccination: No - Home Medications Home Medications: Ambulatory Orders Medication Instructions Recorded Levothyroxine Sodium [Levoxyl] 75 mcg PO DAILY 08/10/14 Ciprofloxacin HCl [Cipro] 500 mg PO BID #20 tab 07/02/17 Tamsulosin [Flomax] 0.4 mg PO DAILY #5 cap 07/02/17 traMADol [Ultram] 50 mg PO Q8 #10 tab 07/02/17 Amoxicillin/Clavulanate [Augmentin 1 tab PO BID #14 tab 03/19/18 875 MG-125 MG] Methylprednisolone [Medrol Dose 4 mg PO DAILY #21 mg 03/19/18 Pack (21 tabs)] Benzonatate [Tessalon Perle] 100 mg PO TID PRN #20 capsule 04/01/18 Oseltamivir Phosphate [Tamiflu] 75 mg PO BID #10 capsule 04/01/18 - Allergies Allergies/Adverse Reactions: Allergies Allergy/AdvReac Type Severity Reaction Status Date / Time aloe Allergy RASH Verified 12/29/18 10:51 sulfamethoxazole Allergy RASH Verified 03/19/18 10:51 [From Bactrim] trimethoprim [From Bactrim] Allergy RASH Verified 03/19/18 10:51 Review of Systems ROS Statement: Except As Marked, All Systems Reviewed And Found Negative Constitutional: Positive for: Fever (t-max 102), Chills, Other (body aches) ENT: Positive for: Nose Congestion Respiratory: Positive for: Cough Gastrointestinal: Negative for: Nausea, Vomiting Physical Exam - Reviewed Nursing Documentation Reviewed: Yes Vital Signs Reviewed: Yes - Physical Exam Appears: Positive for: No Acute Distress Eye Exam: Positive for: Other (congestion in bilateral eyes) ENT: Positive for: TM Is/Are (unremarkable bilaterally), Pharyngeal Erythema (mild). Negative for: Tonsillar Exudate Neck: Positive for: Normal, Painless ROM, Supple Cardiovascular/Chest: Positive for: Regular Rate, Rhythm Respiratory: Positive for: Normal Breath Sounds. Negative for: Wheezing, Respiratory Distress Gastrointestinal/Abdominal: Positive for: Normal Exam, Soft. Negative for: Tenderness Extremity: Positive for: Normal ROM. Negative for: Swelling Neurologic/Psych: Positive for: Alert, Oriented (x3) Medical Decision Making Medical Decision Making: Time: 914 Initial Impression: flu-like symptoms Initial Plan: --Patient stable for d/c home. Scribe Attestation: Documented by Angella Muñoz, acting as a scribe for Abby Walters MD. Provider Scribe Attestation: All medical record entries made by the Scribe were at my direction and personally dictated by me. I have reviewed the chart and agree that the record accurately reflects my personal performance of the history, physical exam, medical decision making, and the department course for this patient. I have also personally directed, reviewed, and agree with the discharge instructions and disposition. - ECG O2 Sat by Pulse Oximetry: 99 (RA) Pulse Ox Interpretation: Normal Disposition - Clinical Impression Clinical Impression: Flu-like symptoms - Patient ED Disposition Is Patient to be Admitted: No Doctor Will See Patient In The: Office Counseled Patient/Family Regarding: Diagnosis, Need For Followup, Rx Given - Disposition Disposition: Routine/Home Disposition Time: 09:30 Condition: STABLE Prescriptions: Benzonatate [Tessalon Perle] 100 mg PO TID PRN #20 capsule PRN Reason: Cough Oseltamivir Phosphate [Tamiflu] 75 mg PO BID #10 capsule Instructions: Flu Forms: [facility] (Ecuadorean), [facility] ED School/Work Excuse - POA Present On Arrival: None
[2018-04-01 10:18] VITALS: BP 140/78
== END 2018-04-01 10:17 | disposition home or self-care (01) ==
LOC: H.ER 08:10
DX: J11.1 Influenza due to unidentified influenza virus with other respiratory manifestations (principal)